=== PATIENT | female | born 2000 | race Caucasian/White ===

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

== ENCOUNTER → 2024-05-23 | Outpatient (CLI) | payer MEDICAID, SELFPAY ==
--- NOTE | 2024-05-23 11:49 | RAD_ITS ---
STUDY: X-RAY - PELVIS AND RIGHT HIP REASON FOR EXAM: Female, 24 years old. Right hip pain. TECHNIQUE: 3 views of the pelvis and hip. COMPARISON: None. FINDINGS: There is a non-specific bowel gas pattern. Normal visualized soft tissue structures. Normal bilateral iliac wings, sacroiliac joints and visualized sacrum. Normal bilateral superior and inferior pubic rami. Normal pubic symphysis. Normal bilateral ischial tuberosities. Normal visualized femoral head. Normal acetabulum. Normal hip joint. RAD/HIP, UNI W/ Pelvis 2-3 Views IMPRESSION: Normal x-ray examination of the pelvis and hip. Electronically Signed: Dex Sawant MD at 13:48 EDT ,
== END | disposition home or self-care (01) ==
LOC: RAD 11:48
PROVIDERS: PCP Nurse Practitioner Adult Health; Referring Provider Student in an Organized Health Care Education/Training Program; Visit Provider Student in an Organized Health Care Education/Training Program
DX: M25.551 Pain in right hip (principal)
CPT/HCPCS: 73502

== ENCOUNTER 2024-05-30 17:28 | Emergency (ER) | payer MEDICAID, SELFPAY ==
[2024-05-30 17:29] VITALS: BP 145/96; PULSE 88; RESP 16; TEMP 36.6; O2SAT 100; BMI 38.7
[2024-05-30] MEDS: Ketorolac 15 MG/ML Vial IM (18:17)
--- NOTE | 2024-05-30 18:19 | RAD_ITS ---
INDICATION: Shortness of breath EXAMINATION/TECHNIQUE: X-RAY - XR Chest 2 Views COMPARISON: None. FINDINGS: The lungs are clear. The cardiomediastinal silhouette is unremarkable. No pleural effusion or pneumothorax. No acute osseous abnormalities. RAD/Chest PA and Lateral IMPRESSION: No acute radiographic abnormalities. Electronically Signed: Yogi Huerta MD at 18:41 EDT ,
--- NOTE | 2024-05-30 19:40 | EDS_ITS ---
HPI History of Present Illness Chief Complaint: Back Detail of Chief Complaint: Back pain thoracic lumbar and shortness of breath Informant: patient and family Onset/Context/Timing Onset: Days Timing: Continuous and Waxes and wanes Quality: Sharp pain Location: Dorsal and paralumbar region Current Severity: Mild Maximum Severity: Moderate Worsened by: Movement Relieved by: Nothing Associated Symptoms Associated Symptoms: Shortness of breath, HPI narrative to clarify Narrative Narrative: Patient is a 24-year-old female. She has history of autism. She has history of asthma. She denies fever, chills night sweats. She does report mild congestion. Otherwise HEENT review of system is negative. Neck is supple. Lungs are without wheeze rales rhonchi with good millimeter bilaterally. Heart is regular. Rate is normal. There is no murmur, gallop or rub. There is no reproducible chest pain. There is no midline back pain. She does have a pair of dorsal paralumbar discomfort. Movement causes her discomfort. Patient denies GI symptoms. Patient denies bowel or bladder dysfunction. Patient denies saddle paresthesia or anesthesia. Patient denies foot drop. Patient denies buckling of her knees going up and down steps. She complains of pain that is in the right buttocks comes anteriorly and goes down the leg straight and not in a radicular/dermatomal distribution. Prior similar symptoms: No Recent Illness/Hospitalization: No PFSH PFSH Medical History no medical history Home Medications ?Medication ?Instructions ?Recorded ?Last Taken ?Type lamotrigine 200 mg tablet 100 mg PO DAILY 05/30/24 05/30/24 History loratadine 10 mg tablet (Claritin) 10 mg PO DAILY 05/30/24 05/30/24 History naproxen 500 mg tablet 500 mg PO BID #20 tabs 05/30/24 Unknown Rx Allergy/AdvReac Type Severity Reaction Status Date / Time No Known Allergies Allergy Verified 05/30/24 17:29 Surgical History no surgical history no surgical history Social History (Updated 05/30/24 @ 19:[address] Kaushik Funk MD) household members: family Smoking Status: Never smoker ROS ROS ED Constitutional Constitutional ED: Denies chills, fever(s) or subjective ENT ENT ED: Denies ear pain, rhinorrhea or sore throat Cardiovascular Cardiovascular: Denies chest pain, orthopnea, palpitations or paroxysmal nocturnal dyspnea Respiratory/Chest Respiratory/Chest: Reports dyspnea; Denies cough, dyspnea on exertion, orthopnea or paroxysmal nocturnal dyspnea Gastrointestinal Gastrointestinal: Denies abdominal pain, nausea or vomiting Genitourinary Genitourinary ED: Denies dysuria, hematuria or urinary frequency Musculoskeletal Musculoskeletal: Reports back pain; Denies arthralgias, myalgias or neck pain Integumentary Denies rash Neurologic Neurologic: Denies headache(s) or paresthesias Endocrine Endocrinology: Denies cold intolerance or heat intolerance Hematologic/Lymphatic Hematologic/Lymphatic: Denies easy bleeding or easy bruising EXAM Physical Exam Const Vital Signs: 05/30/24 17:29 Temperature 98 F Temperature Source Temporal Pulse Rate 88 Respiratory Rate 16 Blood Pressure 145/96 H Blood Pressure Mean 112 Pulse Ox 100 Oxygen Delivery Method Room Air Positive well nourished and well developed General Appearance ED: well developed and NAD; Negative for pallor HEENT Reports moist mucous membranes HEENT Narrative: Head is atraumatic no cephalic. Ears normal. Nares patent. Posterior pharynx is normal. Eyes PERRL and EOMs intact bilaterally General Eye ED: Negative for pale conjunctiva or scleral icterus Neck no lymphadenopathy, supple and no JVD Chest Wall palpation of chest normal Resp normal respiratory effort and clear to auscultation bilaterally Cardio regular rate, regular rhythm, S1 normal heart sound, S2 normal heart sound and no murmurs GI normal to inspection, nondistended, normoactive bowel sounds, non-tender, non- distended and no masses; Negative for hepatosplenomegaly Back/Spine no CVA tenderness Back/Spine Narrative: Paralumbar discomfort as well as. Dorsal discomfort Thoracic Spine / Upper Back: Negative for thoracic spinal tenderness Lumbar Spine / Lower Back: Negative for lumbar spinal tenderness Neuro oriented x3, CN's II-XII intact bilaterally and no sensory deficits noted Neuro Narrative: There is no clonus at the ankles. Babinski sign negative bilaterally. EHL intact. 5 or 5 strength plantar and dorsiflexion. Negative straight leg test right and left. Normal sensation L3-S1 dermatome. Patella and ankle reflex are 2+ and symmetric. Sensorium / Orientation: alert Motor Exam: strength 5/5 throughout Psych mental status grossly normal Skin no rashes or lesions noted, no wounds and skin turgor normal General Skin Exam: elasticity normal; Negative for jaundice or pallor MDM MDM MDM Narrative Medical decision making narrative: Because a history of asthma shortness of breath chest x-ray was obtained to make sure there is no evidence of pneumothorax. Back pain is muscular etiology. There is no concern for epidural abscess, epidural hematoma or spinal lesion. Patient treated with Toradol. She refused IV. Radiography Chest X-Ray - ED: 2 View and Read by ED Physician (Cardiac silhouette size normal. Lung parenchyma normal. [place] normal. [place] structures are unremarkable. In my opinion the chest x-ray is normal.) Diagnostic Testing: Clinical Impression(s) from Imaging Studies Chest X-Ray 05/30/24 18:19 IMPRESSION: No acute radiographic abnormalities. Electronically Signed: Yogi Huerta MD at 18:41 EDT , Treatment and Re-Evaluation :: Patient was reassessed. She does report some improvement with Toradol. Mother states that Tylenol and ibuprofen does not work. She is not using first of all proper dose or does not take more than 1 dose which is insufficient. Will prescribe Naprosyn. She was given a work restriction. Discharge Plan Triage Chief Complaint: Back ED Provider: Kaushik Funk Dx/Rx/DC Orders Clinical Impression: Strain of lumbar paraspinous muscle, Acute bilateral thoracic back pain, Elevated blood-pressure reading, without diagnosis of hypertension Instructions: ED Back Pain (Acute or Chronic), ED Hypertension, To Be Confirmed Prescriptions: New naproxen 500 mg tablet 500 mg PO BID Qty: 20 0RF No Action lamotrigine 200 mg tablet 100 mg PO DAILY loratadine [Claritin] 10 mg tablet 10 mg PO DAILY Stand Alone Forms: Work Status Form Primary Care Provider: JONATAN PETERS Referrals: JONATAN PETERS CRNP [Primary Care Provider] - Print Language: Moldovan Disposition Disposition: Home, Self Care
[2024-05-30 20:01] VITALS: BP 151/81; PULSE 72; RESP 18; TEMP 35.8; O2SAT 99
== END 2024-05-30 20:02 | disposition home or self-care (01) ==
PROVIDERS: Emergency Provider Emergency Medicine; PCP Nurse Practitioner Adult Health; Visit Provider Emergency Medicine
DX: S39.012A Strain of muscle, fascia and tendon of lower back, initial encounter (principal); X58.XXXA Exposure to other specified factors, initial encounter; M54.6 Pain in thoracic spine; R03.0 Elevated blood-pressure reading, without diagnosis of hypertension
CPT/HCPCS: 71046; 96372; 99282; A4216

== ENCOUNTER → 2024-07-14 | Outpatient (CLI) | payer MEDICAID, SELFPAY ==
[2024-07-14 09:10] LABS: Absolute Lymphocyte Count 1.28 X10^3/uL (0.83-4.51); Absolute Neutrophil Count 2.4 X10^3/uL (2.0-7.7); Basophil# 0.05 X10^3/uL; Basophil% 1.1 % (0-1); Eosinophil# 0.43 X10^3/uL; Eosinophils% 9.5 % (0-5); Hematocrit 36.7 % (37-47); Lymphocyte # 1.28 X10^3/ul (0.83-4.51); Lymphocyte % 28.1 % (19-41); Mean Corp Hgb Conc 32.7 g/dL (32-36); Mean Corpuscular Hgb 28.6 pg (27.0-32.0); Mean Corpuscular Volume 87.4 fL (81-99); Mean Platelet Vol. 9.4 fl (6.2-12.0); Monocyte# 0.41 X10^3/uL; NRBC Flagged by Analyzer 0 % (0-5); Neutrophil # 2.37 X10^3/uL (2.7-7.7); Neutrophil % 52.1 % (47-70); Platelet Count 325 K/mm3 (150-450); RBC Distribution Width CV 12.7 % (11.6-14.6); RBC Distribution Width SD 40.2 fl (35.1-43.9); RET-HE 32.7 pg (30-35); Reticulocyte Count 0.98 % (0.5-1.5); White Blood Count 4.6 K/mm3 (4.4-11.0)
[2024-07-14 09:13] LABS: Erythrocyte Sedimentation Rate 5 mm/hr (0-30)
[2024-07-14 09:52] LABS: ALB/GLOB Ratio 1.1 RATIO (0.9-2.4); AST(SGOT) 11 U/L (15-37); Alanine Aminotransfer ALT/SGPT 13 U/L (13-56); Albumin, Serum 3.6 g/dL (3.2-5.0); Alkaline Phosphatase 49 U/L (45-117); Anion Gap 6 (5-15); BUN 17 mg/dL (7-18); BUN/Creat Ratio 20.9 RATIO (10-20); CRP < 2.90 mg/L (0.0-3.0); Calcium,Total 8.9 mg/dL (8.5-10.1); Chloride 111 mmol/L (98-107); Creatinine, Serum 0.81 mg/dL (0.55-1.02); EST Glomerular Filtration Rate 93 mL/min (>60); Est Glom Filt Rate - Afr Amer 112 mL/min (>60); Ferritin 21 ng/mL (8-252); Globulin 3.3 g/dL (2.2-4.2); Glucose 91 mg/dL (74-106); Iron 66 ug/dL (50-170); Iron Binding Capacity,Total 357 ug/dL (250-450); LDH 127 U/L (84-246); Potassium 3.9 mmol/L (3.5-5.1); Protein, Total 6.9 g/dL (6.4-8.2); Sodium Level 141 mmol/L (136-145)
[2024-07-14 10:36] LABS: HIV - WCH Non-Reactive (Nonreactive)
[2024-07-15 13:08] LABS: Anti-Centromere B Ab >8.0 AI (0.0-0.9); Anti-Chromatin <0.2 AI (0.0-0.9); Anti-Jo <0.2 AI (0.0-0.9); Anti-Scleroderma-70 AB <0.2 AI (0.0-0.9); Anti-dsDNA Ab <1 IU/mL (0-9); RNP Ab <0.2 AI (0.0-0.9); SJOGREN'S Anti-SS-A test < 0.2 AI (0.0-0.9); SJOGREN'S Anti-SS-B test < 0.2 AI (0.0-0.9); Smith Ab <0.2 AI (0.0-0.9)
[2024-07-16 16:10] LABS: ACCA 10 units (0-90); ALCA 3 units (0-60); AMCA 5 units (0-100); Albumin 3.8 g/dL (2.9-4.4); Alpha-1-Globulins 0.2 g/dL (0.0-0.4); Alpha-2-Globulins 0.7 g/dL (0.4-1.0); Cytoplasmic Ab (C-ANCA) <1:20 titer (Neg:<1:20); EBV Acute VCA IgM < 36.0 U/mL (0.0-35.9); EBV-VCA IgG > 600.0 U/mL (0.0-17.9); Endomysial Antibody IgA Negative (Negative); Gamma Globulin 0.8 g/dL (0.4-1.8); HEPATITIS B SURFACE AG Negative (Negative); Hep C Antibodies Non Reactive (Non Reactive); Hepatitis A IgM Antibody Negative (Negative); Hepatitis B Core AB IgM Negative (Negative); Immunoglobulin A 159 mg/dL (87-352); Immunoglobulin E 21 IU/mL (6-495); Immunoglobulin G 849 mg/dL (586-1602); Immunoglobulin M 72 mg/dL (26-217); PROEL- TOTAL PROTEIN 6.5 g/dL (6.0-8.5); Perinuclear Ab (P-ANCA) <1:20 titer (Neg:<1:20); gASCA 14 units (0-50); t-Transglutaminase IgA <2 U/mL (0-3)
== END | disposition home or self-care (01) ==
PROVIDERS: PCP Nurse Practitioner Adult Health; Referring Provider Internal Medicine Gastroenterology; Visit Provider Internal Medicine Gastroenterology
DX: K92.2 Gastrointestinal hemorrhage, unspecified (principal)
CPT/HCPCS: 36415; 80053; 80074; 82728; 82784; 82785; 83516; 83540; 83550; 83615; 84165; 84443; 85025; 85045; 85652; 86036; 86037; 86140; 86225; 86235; 86255; 86334; 86664; 86665; 86671; 86703

== ENCOUNTER → 2024-08-01 | Outpatient (CLI) | payer MEDICAID, SELFPAY ==
--- NOTE | 2024-08-01 16:44 | CT_ITS ---
STUDY: CT ABDOMEN AND PELVIS WITH CONTRAST REASON FOR EXAM: Female, 24 years old. Rectal bleeding RADIATION DOSAGE (If Supplied By Facility): CTDIvol = ( 16.04 ) mGy, DLP = ( 1270.30 ) mGycm TECHNIQUE: Transaxial images were obtained from the dome of the diaphragm to the symphysis pubis with oral contrast. IV 100mL Isovue-300 was administered. Sagittal and coronal images were reconstructed. Individualized dose optimization techniques were used for this CT. COMPARISON: September 21, 2016 FINDINGS: The visualized lung bases are unremarkable. The visualized portions of the heart are within normal limits. Normal liver. Normal gallbladder and extrahepatic biliary system. Normal spleen. Normal pancreas. Normal bilateral adrenal glands. Normal right kidney. Normal left kidney. Normal visualized stomach. Normal small intestine. There are a few sigmoid colonic diverticula consistent with diverticulosis. The appendix is visualized and appears normal. Normal abdominal aorta. Normal inferior vena cava. Normal retroperitoneum. Normal urinary bladder. Normal visualized uterus. No adnexal follicles. There is no free fluid in the abdomen or pelvis. Normal abdominal wall. There is mild lumbar dextroscoliosis. CT/Abdomen/Pelvis WITH Contrast IMPRESSION: Sigmoid diverticulosis. No obstruction or abscess. Electronically Signed: Hood Triplett MD at 9:49 EDT ,
--- OUTSIDE RECORDS SUMMARY | 2024-08-01 17:41 | XMS RPT_ITS | CCD ---
Author Organization [facility] ion Partnership [facility] Care Team Providers Care Gps Field Data Collector Name Role Phone LUCY KU (RES) Unavailable Unavailable SANTI JAVIER Unavailable Unavailable REFERRED, SELF Unavailable Unavailable JOECHARANJIT PEREZ Unavailable Unavailable REFERRED, SELF Unavailable Unavailable JOE, CHARANJIT Alexander Unavailable Unavailable LEONARDO DRAPER Unavailable Unavailable REFERRED, SELF Unavailable Unavailable JOECHARANJIT PEREZ Unavailable Unavailable REFERRED, SELF Unavailable Unavailable JOECHARANJIT PEREZ P Unavailable Unavailable LEONARDO DRAPER Unavailable Unavailable Charanjit Diaz MD Primary Care Provider VERONIKA ECRNA DR Admitting Unavailable VERONIKA CERNA DR Attending Unavailable VERONIKA CERNA DR Primary Care Unavailable RASHMI LOPEZ DO Consulting Unavailable PROVIDER, UNKNOWN Consulting Unavailable VERONIKA CERNA DR Admitting Unavailable VERONIKA CERNA DR Attending Unavailable VERONIKA CERNA DR Primary Care Unavailable RASHMI LOPEZ DO Consulting Unavailable PROVIDER, UNKNOWN Consulting Unavailable DR RASHMI LOPEZ DO Primary Care Physician [phone] MAST ENVIRONMENTAL EPIDEMIOLOGIST-SENIOR GIS ANALYST, JONATAN Primary Care Unavailabl e MAST ENVIRONMENTAL EPIDEMIOLOGIST-SENIOR GIS ANALYST, JONATAN Attending Unavailabl e BORRUSO DANIEL WESTBROOK Attending Unavailable MAST ENVIRONMENTAL EPIDEMIOLOGIST-SENIOR GIS ANALYST, JONATAN Primary Care Unavailabl e MAST ENVIRONMENTAL EPIDEMIOLOGIST-SENIOR GIS ANALYST, JONATAN Primary Care Unavailabl e BORRUSO DANIEL WESTBROOK Attending Unavailable Allergies Allergy Classification Reported Allergen(s) Allergy Type Date of Onset Reaction(s) Facility (2 sources) Cat; Translations: [CATS] Propensity to adverse reactions (disorder) 10-15-19 11 Intolerance [facility] Repository (2 sources) Seasonal allergy; Translations: [SEASONAL ALLERGIES] Propensity to adverse reactions (disorder) 02-18-20 13 Shortness of Breath [facility] Repository (1 source) Cat; Translations: [CAT ALLERGY] Propensity to adverse reactions (disorder) 09-05-20 [facility] Repository (1 source) Serotonin Reuptake Inhibitors (Ssris) Drug allergy (disorder) [facility] Repository (2 sources) Serotonin Drug Allergy Antimicrobial susceptibility test (procedure) [facility] Comment on above: sensitivity to serot onin drugs (2 sources) Cats 1 Allergy to substance hives, hi [facility] Comment on above: hives, itchy eyes, i tchy throat (2 sources) Hayfever 2 Allergy to substance Weal (disorder) [facility] Comment on above: nasal drainage, itch y eyes, Medications Current Medications Medication Drug Class(es) Dates Sig (Normalized) Sig (Original) Ascorbic Acid (2 sources) Vitamin C Start: 12-14-2022 Vitamin C qDay, 0 Refill(s) Start Date: 12/14/22 Status: Ordered Biotin (2 sources) Start: 12-14-2022 biotin Oral, qDay, 0 Refill(s) Start Date: 12/14/22 Status: Ordered 12 hr buPROPion hydrochloride 150 mg extended release oral tablet (2 sources) Aminoketone Start: 12-14-2022 take 1 tablet by mouth every hour, then take 1 tablet by mouth once daily Wellbutrin SR 150 mg/12 hours oral tablet, extended release Dose : 150 mg = 1 tab(s), Oral, qDay, # 60 tab(s), 0 Refill(s) Start Date: 12/14/22 Status: Ordered fluticasone propionate 0.05 mg/actuat metered dose nasal spray (2 sources) Corticosteroid Start: 03-08-2023 End: 09-04-2023 take 1 dose nasal route twice daily as needed for congestion fluticasone 50 mcg/inh NASAL spray Dose = 1 spray(s), Nostril, each, BID, PRN Nasal congestion, in each nostril, # 1 EA, 5 Refill(s), Pharmacy: [facility] #[id number], 163.5, cm, 03/08/23 11:35:00 EDT, Height Start Date: 03/08/23 Stop Date: 09/04/23 Status: Ordered hydrOXYzine hydrochloride 25 mg oral tablet (2 sources) Antihistamine Start: 12-14-2022 hydrOXYzine hydrochloride 25 mg oral tablet Dose : 25 mg = 1 tab(s), Oral, Daily, # 0 tab(s), 0 Refill(s) Start Date: 12/14/22 Status: Ordered lamoTRIgine 200 mg oral tablet (3 sources) Mood Stabilizer, Anti-epileptic Agent Start: 12-14-2022 lamoTRIgine 200 mg oral tablet Dose : 200 mg = 1 tab(s), Oral, qDay, # 180 tab(s), 0 Refill(s) Start Date: 12/14/22 Status: Ordered Start: 05-23-2021 take 2 tablets by mo ut twice daily lamoTRIgine (LAMICTAL) 25 mg tablet Take 50 mg by mouth twice daily. 0 05/23/2021 Active Comment on above: Take 50 mg by mouth twice daily. Multiple Vitamins oral capsule (2 sources) Start: 12-14-2022 take 1 capsule by mouth once daily Multiple Vitamins oral capsule Dose = 1 cap(s), Oral, Daily, 0 Refill(s) Start Date: 12/14/22 Status: Ordered Completed/Discontinued Medications Medication Drug Class(es) Dates Sig (Normalized) Sig (Original) Albuterol (2 sources) beta2-Adrenergic Agonist Start: 12-14-2022 End: 06-12-2023 take 2 puff(s) by inhalation every four hours as needed for wheezing Ventolin HFA MDI (90 mcg/inh) inhalation aerosol 2 puff(s), Inhalation, q4h, PRN Shortness of breath or wheezing, use with spacer chamber. PHARMACY PLEASE DISPENSE SPACER. Okay to substitute alternative brand if needed for insurance., # 1 EA, 5 Refill(s), Pharmacy: [id number], 163.5, cm, 12/14/22 15:04:00 EST, Height Start Date: 12/14/22 Stop Date: 06/12/23 Status: Ordered 24 hr amphetamine aspartate 3.75 mg / amphetamine sulfate 3.75 mg / dextroamphetamine saccharate 3.75 mg / dextroamphetamine sulfate 3.75 mg extended release oral capsule (1 source) Central Nervous System Stimulant Start: 06-02-2021 amphetamine-dext roamphetamine XR (ADDERALL XR) 15 mg 24 hr capsule TAKE 1 CAPSULE DAILY IN THE MORNING upon awakining 0 06/02/2021 Active Comment on above: TAKE 1 CAPSULE DAILY IN THE MORNING upon awakining diclofenac sodium 75 mg delayed release oral tablet (1 source) Nonsteroidal Anti-inflammatory Drug Start: 07-16-2023 End: 07-30-2023 diclofenac sodium 75 mg oral delayed release tablet Dose : 75 mg = 1 tab(s), Oral, BID, # 28 tab(s), 0 Refill(s), Pharmacy: [facility] #[id number], Right hip pain, 167, cm, 07/16/23 11:31:00 EDT, Height, kg, 07/16/23 11:31:00 EDT, Dosing Weight Start Date: 07/16/23 Stop Date: 07/30/23 Status: Ordered loratadine 10 mg oral capsule (2 sources) Start: 03-08-2023 End: 06-06-2023 loratadine 10 mg oral capsule Dose : 10 mg = 1 cap(s), Oral, qDayAC, PRN Allergy symptoms, # 90 cap(s), 0 Refill(s), Pharmacy: [facility] #[id number], 163.5, cm, 03/08/23 11:35:00 EDT, Height Start Date: 03/08/23 Stop Date: 06/06/23 Status: Ordered mirtazapine 15 mg oral tablet (1 source) Start: 06-11-2020 take 1 tablet by mouth once daily at bedtime mirtazapine (REMERON) 15 mg tablet Take 1 tablet by mouth daily at bedtime. 30 tablet 2 06/11/2020 Active Comment on above: Take 1 tablet by josué daily at bedtime. prazosin 1 mg oral capsule (1 source) alpha-Adrenergic Joan Start: 05-07-2020 take 1 capsule by mouth once daily at bedtime prazosin (MINIPRESS) 1 mg cap Take 1 capsule by mouth daily at bedtime. 30 capsule 5 05/07/2020 Active Comment on above: Take 1 capsule by mo [facility] daily at bedtime. propranolol hydrochloride 20 mg oral tablet (1 source) beta-Adrenergic Joan Start: 06-21-2020 take 1 tablet by mouth every twelve hours as needed propranolol (INDERAL) 20 mg tablet Take 1 tablet by mouth twice daily as needed (anxiety or panic attacks). 60 tablet 2 06/21/2020 Active Comment on above: Take 1 tablet by josué th twice daily as needed (anxiety or panic attacks). selenium sulfide 22.5 mg/ml medicated shampoo (3 sources) Start: 04-20-2023 End: 05-18-2023 selenium sulfide 2.25% topical shampoo Dose = 1 rosetta, Topical, Mon/Sun/Fri, # 180 mL, 1 Refill(s), Pharmacy: [facility] #[id number], 185, cm, 04/20/23 13:37:00 EDT, Height, kg, 04/20/23 13:37:00 EDT, Dosing Weight Start Date: 04/20/23 Stop Date: 05/18/23 Status: Ordered Problems Active Problems Problem Classification Problem Date Documented Da te Episodic/Chronic Anxiety disorders (3 sources) Anxiety disorder, unspecified; Translations: [Generalized anxiety disorder] Onset: 07-14-2017 08-28-2019 Chronic Asthma (2 sources) Asthma 12-14-2022 Chronic Attention-deficit, conduct, and disruptive behavior disorders (1 source) Attention deficit hyperactivity disorder, predominantly inattentive type; Translations: [Attention-deficit hyperactivity disorder, predominantly inattentive type] Onset: 01-20-2019 03-11-2020 Chronic Cardiac dysrhythmias (2 sources) Palpitations 12-18-2022 Episodic Deficiency and other anemia (2 sources) Anemia 12-14-2022 Episodic E Codes: Fall (1 source) Fall (on) (from) unspecified stairs and steps, subsequent encounter; Translations: [Fall on or from stairs or steps (finding)] Episodic Endometriosis (2 sources) Endometriosis (clinical) 12-14-2022 Chronic Fracture of lower limb (3 sources) Closed trimalleolar fracture; Translations: [Displaced trimalleolar fracture of left lower leg, subsequent encounter for closed fracture with routine healing] Episodic Gastrointestinal hemorrhage (2 sources) Rectal hemorrhage 12-14-2022 Episodic Joint disorders and dislocations; trauma-related (1 source) Dislocation of tarsal joint of left foot, subsequent encounter; Translations: [Dislocation of tarsal joint of left foot, subsequent encounter] Episodic Menstrual disorders (5 sources) Dysmenorrhea; Translations: [Dysmenorrhea, unspecified] Onset: 07-14-2017 07-14-2017 Chronic Miscellaneous mental health disorders (2 sources) Binge eating disorder; Translations: [Binge eating disorder] Onset: 07-14-2017 07-14-2017 Chronic Mood disorders (5 sources) Bipolar II disorder; Translations: [Bipolar II disorder] Onset: 10-31-2016 03-11-2020 Chronic Nutritional deficiencies (1 source) Vitamin D deficiency; Translations: [Vitamin D deficiency, unspecified] Onset: 04-25-2018 02-06-2019 Chronic Other connective tissue disease (3 sources) Other specified soft tissue disorders; Translations: [Other specified soft tissue disorders] Onset: 01-04-2023 Episodic Other ear and sense organ disorders (2 sources) Bilateral tinnitus 12-14-2022 Episodic Other female genital disorders (1 source) Other specified conditions associated with female genital organs and menstrual cycle; Translations: [Other specified conditions associated with female genital organs and menstrual cycle] Onset: 03-22-2018 Episodic Other inflammatory condition of skin (2 sources) Seborrheic dermatitis of scalp 04-20-2023 Episodic Other lower respiratory disease (2 sources) Dyspnea 12-18-2022 Episodic Other non-traumatic joint disorders (1 source) Ankle joint pain; Translations: [Pain in right ankle and joints of right foot] Episodic Other non-traumatic joint disorders (2 sources) Hip pain 07-16-2023 Episodic Other upper respiratory disease (2 sources) Allergic rhinitis 03-08-2023 Chronic Other upper respiratory infections (1 source) Sore throat symptom 05-28-2023 Episodic Otitis media and related conditions (1 source) Dysfunction of eustachian tube 05-28-2023 Episodic Residual codes; unclassified (1 source) Past history of procedure; Translations: [Other specified postprocedural states] Episodic Residual codes; unclassified (2 sources) Peripheral edema 03-08-2023 Episodic Sprains and strains (1 source) Sprain of tibiofibular ligament of left ankle; Translations: [Sprain of tibiofibular ligament of left ankle, subsequent encounter] Episodic Unclassified (1 source) Encounter for initial prescription of implantable subdermal contraceptive; Translations: [Encounter for initial prescription of implantable subdermal contraceptive] Onset: 03-22-2018 Unclassified (2 sources) Gender finding 12-18-2022 Unclassified (2 sources) History of SARS-CoV-2 12-14-2022 Past or Other Problems Problem Classification Problem Date Documented Da te Episodic/Chronic Other nutritional; endocrine; and metabolic disorders (1 source) Childhood obesity; Translations: [Body mass index (BMI) pediatric, greater than or equal to 95th percentile for age] Onset: 10-16-2017 05-22-2019 Episodic Ovarian cyst (1 source) Cyst of right ovary; Translations: [Unspecified ovarian cyst, right side] Onset: 01-08-2017 01-08-2017 Episodic Residual codes; unclassified (1 source) Hallucinations; Translations: [Hallucinations, unspecified] Onset: 12-10-2017 12-10-2017 Episodic Residual codes; unclassified (1 source) Insomnia; Translations: [Insomnia, unspecified] Onset: 09-25-2018 06-04-2019 Episodic Results Test Name Value Interpretation Reference Range Facility XR HIP 3-4 VIEWS BILATERALon 08-12-2023 XR HIP 3-4 VIEWS BILATERAL ORIGINAL EXAMINATION: 5 XRAY VIEWS OF THE pelvis and BILATERAL HIPS08/10/2023 4:30 pm HIPS BILATERAL XR COMPARISON: None HISTORY: ORDERING SYSTEM PROVIDED HISTORY: Reason for Exam: BILATERAL HIP PAIN, FINDINGS: No acute fracture, dislocation, bony lytic process or periosteal reaction is seen in the visualized bones and joints. No significant degenerative or erosive type of arthritis or soft tissue calcification. Compared to the left hip there is evidence of right hip dysplasia with decreased coverage of the femoral head. The center edge angle on the right side is abnormal at 18 degrees and is normal on the left side at 28 degree. No significant degenerative changes or joint space narrowing in either hip. Symmetric normal SI joints. IMPRESSION: No acute skeletal abnormality in the pelvis and hips. 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 No similar finding on the left side.. Interpreted by: Rolando Hernandez MD Preliminary Report By: Rolando Hernandez MD Electronically signed By Rolando Hernandez MD Dictated Date: 08/11/2023 2:51:41 PM Prelim Date: 08/12/2023 9:51:55 PM Sign Date: 08/12/2023 9:51:55 PM Ordering Provider: JONATAN Thornton [facility] ([place]) OPERATIVE PROCEDURESon 01-15 OPERATIVE PROCEDURES [facility] OPERATIVE REPORT NAME ACCOUNT SEX AGE ADMIT DISCHARGE PT MED. RECORD# NUMBER DATE DATE TYPE ALECIA MALCOLM [id number] F 22 01/05/23 2 [id number] ROOM: [facility] DATE OF : 2000 DICTATING PHYSICIAN: Veronika Cerna DATE OF SURGERY: 01/05/23 SURGEON: Veronika Cerna MD BOOKMAKER'S CLERK: Thalia Leyva PA-C ANESTHESIOLOGIST: Bin Wray MD ANESTHETIC: General, postoperative saphenous and popliteal nerve block. PREOPERATIVE DIAGNOSIS: Left ankle trimalleolar fracture dislocation. POSTOPERATIVE DIAGNOSIS: Left ankle trimalleolar fracture dislocation. OPERATION PERFORMED: Left ankle open reduction and internal fixation trimalleolar fracture, open reduction and internal fixation of syndesmosis disruption. COMPLICATIONS: None. ESTIMATED BLOOD LOSS: 25 mL. MEDICATIONS: Ancef 2 gm IV. INDICATIONS FOR SURGERY: The patient is a 22-year-old female that had injured both ankles several days ago. They were treated at the emergency room. They were seen in the office by a physician speech language pathology assistant. I did see the patient in the office yesterday. Diagnosis was a displaced unstable trimalleolar fracture with syndesmosis disruption on the left, ankle sprain on the right. The patient wished to have surgery. Appropriate informed consent was obtained and signed. Findings showed a trimalleolar unstable ankle fracture on the left. We underwent a standard internal fixation of the fibula using a retrograde fibular nail, Arthrex. We did a medial malleolar screw on the fracture there. We used a TightRope device to stabilize the mortise. Posterior malleolar fragment was small and nondisplaced at the end of the procedure, not needing internal fixation. Standard wound closure with skin felipe, followed by being placed back in a fracture boot was done. assistant professor of physics, physician speech language pathology assistant was utilized throughout the entire procedure. Page 1 of 3 ALECIA MALCOLM Operative Report ALECIA MALCOLM : 2000 She helped with patient positioning, holding limb, holding of retractors. She helped with exposure throughout. She helped with internal fixation of the fibula, medial malleolus, syndesmosis, also with wound closure, bandage, and splint application. Without ophthalmic surgical assistant in their expertise, surgeon's time would have been increased, and surgical outcomes would have been less optimal. DESCRIPTION OF OPERATION: The patient was taken to the OR, transferred to the OR table. Appropriate time-outs performed, general anesthetic administered. Ancef 2 gm IV was given preoperatively. Narrow tourniquet was utilized. Right lower extremity had PETER hose and SCD on throughout. Left lower extremity was examined with fluoroscopic images to confirm position of the limb and x-ray findings. Once this was done, the left lower extremity was prepped, padded, and draped in usual orthopedic sterile fashion for the procedure. We began by mapping out the anatomy with help of fluoroscopy and our proposed incision distal to the tip of the lateral malleolus through skin and subcutaneous tissue. Blunt dissection took us down to the tip of the medial malleolus. Position of our guidepin was verified under AP and lateral fluoroscopic images. We were able to get the guidepin in the distal fibula going proximally to the fracture site. We were not able to adequately reduce the fracture to allow wire placement. We made an incision over the fracture site. Careful blunt dissection brought us down to the fracture site. We placed a bone reduction clamp around the fracture without any undue soft tissue stripping. Once this was in position, the guidepin could now be easily placed across the fracture into the proximal fibula. We then did the appropriate reaming distally, followed by appropriate proximal reaming with the long 3 mm Arthrex nail. Once this was done, the nail was placed with the outrigger device on, seated up adequately within the bone, verified clinically as well as radiographically. We then placed two distal cross-blocking screws through the nail, each being 3-0 cancellous bone screws with appropriate length and good bite. We then felt the mortise was unstable based on radiographic findings preoperatively as well as intraoperatively. We drilled two holes for syndesmosis fixation with TightRopes. We then removed the external alignment system from the fibular nail. We had previously deployed the proximal talons per technique. That was verified radiographically. We then placed a cap screw in the distal birgit. Next, the medial malleolar fracture which remained significantly displaced and rotated was addressed. An incision was made over the medial malleolus, ultimately was reduced, held in place after we thoroughly irrigated. It was held in place with a clamp. Original fixation was not successful with one screw. Inadequate purchase was noted. We then had considered using a (more content not included)... Normal [facility] C-ARM USAGE 1 HOUR 023 C-ARM USAGE 1 HOUR [place] [address] Patient: ALECIA MALCOLM Phone#: : 2000 Age: 22 Gender: F Pt. Type: Out Account: [id number] Location: 062 Ordering: VERONIKA CERNA Exam Date: 01/05/2023/13:43 Family Phys: RASHMI LOPEZ Charge Code: 718458 Physician: Lincoln Order #: [id number] Dose#: PROCEDURE: C-ARM USEAGE 1 HR COMPARISON: None. INDICATIONS: Ankle surgery. TOTAL DOSE: 12.18 mGy Time: 3 minutes 41.8 seconds FINDINGS: IMAGES: 12 intraoperative spot images of the left ankle. BONES: Intraoperative spot images of the left ankle demonstrate a distal fibula fracture and a medial malleolus fracture. Femoral medullary birgit is present with 2 distal screws. A screw fixates the medial malleolus fracture. There is osteotomy of the distal fibula and tibia for syndesmotic repair. OTHER: Negative. CONCLUSION: 1. Intraoperative spot images for open reduction internal fixation left ankle Dictated by: Bisi Treadwell MD on 01/05/2023 at 16:18 Approved by: Bisi Treadwell MD on 01/05/2023 at 16:[address] [facility] SERUM QUALon 01-05 EXTERNAL QC DONE? YES Normal [facility] Comment on above: Performed By: #### [id number] #### [facility],[address] [place] [address] INTERNAL QC PASS Normal [facility] Comment on above: Performed By: #### [id number] #### [facility],[address] [place] [address] SER Negative Normal NEGATIVE [facility] Comment on above: Performed By: #### [id number] #### [facility],[address] [place] [address] CV VENOUS LEG LTon 3 CV VENOUS LEG LT [place] [address] Patient: ALECIA MALCOLM Phone#: : 2000 Age: 22 Gender: F Pt. Type: Out Account: [id number] Location: Ordering: [facility] Exam Date: 01/04/2023/11:01 Family Phys: RASHMI LOPEZ Charge Code: 922306 Physician: Lincoln Order #: [id number] Dose#: PROCEDURE: VENOUS DOPPLER LT LEG COMPARISON: None. INDICATIONS: PAIN, SWELLING TECHNIQUE: Color duplex Doppler ultrasound evaluation analysis was performed in the usual manner. RADIOGRAPHER MAMMOGRAPHER: SHAUN RISK FACTORS FOR VENOUS DISEASE: LE trauma/injury Broken ankle Other Pain EXAMINATION: RIGHT +Present -Reduced o Absent LEFT SPONT PHASIC AUG REFLUX COMP SPONT PHASIC AUG REFLUX COMP + + + o + CFV + + + o + SFJ + FV (prox) + + + o + FV (mid) + FV (dist) + POP V + + + o + T/P TRUNK + + + o + PTV + + + o + PERONEAL V + + + o + GSV + GASTROC SOLEAL V RADIOGRAPHER MAMMOGRAPHER'S NOTES: FINDINGS: Continued Report - Page 2 of 2 Patient: ALECIA MALCOLM Phone#: : 2000 Age: 22 Gender: F Pt. Type: Out Account: [id number] Location: Ordering: [facility] Exam Date: 01/04/2023/11:01 Family Phys: RASHMI LOPEZ Charge Code: 915644 Physician: Lincoln Order #: [id number] Dose#: THROMBI: None visible. COMPRESSIBILITY: Normal. OTHER: Negative. CONCLUSION: 1. There is no evidence of superficial or deep vein thrombus. Dictated by: Jade Cesar MD on 01/04/2023 at 12:41 Approved by: Jade Cesar MD on 01/04/2023 at 12:54 Normal [facility] 12-15-[address] [facility] Telephone [facility]) ALECIA MALCOLM ([id number]) 2 F T Date Time Provider Department 12/15/22 CHARANJIT DIAZ During your visit today, we recorded the following information about you: Janeth Triplett EPIFANIO 12/15/2022 2:53 PM Signed Received release of Medical Records form from [facility] , signed by patient. Form was faxed to medical records at [phone] and then sent to scanning. Allergies As of Date: 12/15/2022 Noted Allergy Reaction CATS 10/15/2010 5 - Intolerance HAY FEVER (SEASONAL ALLERGIES) 02/17/2013 12 - Shortness of Breath Date Reviewed: 07/14/2021 Reviewed by: WERNER Whittington - Fully Assessed Reason for Visit: Release Of Medical Records [2017] Prescriptions as of 12/15/2022 - amphetamine-dextroamphetami ne XR (ADDERALL XR) 15 mg 24 hr capsule TAKE 1 CAPSULE DAILY IN THE MORNING upon awakining - lamoTRIgine (LAMICTAL) 25 mg tablet Take 50 mg by mouth twice daily. - propranolol (INDERAL) 20 mg tablet Take 1 tablet by mouth twice daily as needed (anxiety or panic attacks). - mirtazapine (REMERON) 15 mg tablet Take 1 tablet by mouth daily at bedtime. - prazosin (MINIPRESS) 1 mg cap Take 1 capsule by mouth daily at bedtime. 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] 09/25/2018 Attention deficit hyperactivity disorder (ADHD)*01/20/2019 Body mass index (BMI) greater than or equal to *10/16/2017 Encounter Status:Closed by JANETH TRIPLETT LPN on 12/15/22 [facility] OBSOLETEon 03-22-2018 OBSOLETE Procedure (OBGWST) -------LARON MALCOLM ([id number]) 01 F TDate Time Provider Department03/22/18 10:30 AM LUCY KU (MARK) OBGWST During your visit today, we recorded the following information about you: Pulse Blood pressure Weight Height 99/minute 124/79 116.1 kg 1.676 m Last Period 03/19/18Lucy Ku MD 03/22/2018 1:00 PM AddendumGynecology Clinic03/22/2018 11:11 [facility]: Nexplanon placement/menstrual suppressionHPI: Aleica Malcolm is a 17 year old FtM transgender male who presents toclinic today with his mother Stacey for consult regarding menstrualsuppression. He has been using control pills for a few years but forgetsto take pills sometimes and has occasional spotting which is very upsetting tohim. He ideally would have as little bleeding as possible.Alecia also struggles with anxiety and depression and is seeing a transgenderpsychiatrist for this. Is taking hydroxyzine and propranolol prn. Psychiatriststrongly recommended Nexplanon for menstrual suppression.Alecia is interested in hysterectomy as soon as possible and has many questionsabout this. He has not yet started taking testosterone but is consideringstarting in the near future.Review of Systems:GENERAL: Negative for malaise, significant weight loss and feverNECK: Negative for lumps, goiter, pain and significant neck swellingRESPIRATORY: Negative for cough, wheezing and shortness of breathCARDIOVASCULAR: Negative for chest pain, leg swelling and palpitationsGI: Negative for abdominal discomfort, blood in stools or black stools,changein bowel habitsGU: Negative for dysuria, frequency and incontinenceMUSCULOSKELETAL : Negative for joint pain or swelling, back pain, and musclepain.SKIN: Negative for lesions, rash, and itching.HEMATOLOGY/LYMPHOLO GY Negative for prolonged bleeding, bruising easily, andswollen nodes.ENDOCRINE: Negative for cold or heat intolerance, polyuria, polydipsia andgoiter.FAMILY HISTORYProblem Relation Age of Onset- pre-diabetes [OTHER] Mother- migraines [OTHER] Mother- Cancer Paternal Grandfather- benign tumor [OTHER] Paternal Grandmother- migraines [OTHER] Maternal GrandmotherPAST MEDICAL HISTORYDiagnosis Date- Abdominal pain- Anxiety- Mild binge-eating disorder 07/14/2017- NEGATIVE HISTORY OF 06-19-12 Normal Color Vision- Ovarian cyst- PMH - PAST MEDICAL HISTORY OF umbilical hernia- PMH - PAST MEDICAL HISTORY OF [facility] and renal ultrasound - normal- PMH - PAST MEDICAL HISTORY OF 08/21/2008 Failed Color VisionPAST SURGICAL HISTORYProcedure Laterality Date- NONESocial History Marital status: Single Spouse name: Years of education: Number of children:Occupational HistoryOccupation Employer CommentstudentSocial History Main Topics Smoking status: Never Smoker Smokeless tobacco: Never Used Comment: Mom no longer smokes Alcohol use: No Drug use: No Sexual activity: No Comment: Never SA, identifies as gayObstetric History T0 L0 SAB0 TAB0 Ectopic0 Multiple0 Live Mxujro2Ztesncohmqr:Current Outpatient Prescriptions:cholecalcifer ol, Vitamin D3, (VITAMIN D3) 50,000 unit cap capsule Take 1capsule by mouth once each week. Disp: 6 capsule Rfl: 0propranolol (INDERAL) 10 mg tablet Take 1 tablet by mouth twice daily. Can takean additional tablet once daily PRN anxiety/panic. Disp: 90 tablet Rfl: 2diphenhydrAMINE (BENADRYL) 25 mg capsule Take 1 capsule by mouth at bedtime asneeded. Use as directed. Disp: Rfl:acetaminophen (TYLENOL) 325 mg tablet Take 650 mg by mouth every 6 hours asneeded. Disp: Rfl:ALPRAZolam (XANAX) 0.5 mg tablet Take one tablet at bedtime the night prior tothe procedure and one tablet 30min prior to the procedure Disp: 2 tablet Rfl: 0ibuprofen (MOTRIN) 600 mg tablet Take 1 tablet by mouth every 6 hours as neededfor Pain. Take with food. Disp: 20 tablet Rfl: 0Norethindrone, Contraceptive, (ORTHO MICRONOR) 0.35 mg tablet Take 1 tablet bymouth once daily. Disp: 1 Package Rfl: 11No current facility-administered medications for this visit.Allergies:ALLERGIESAl lergen Reactions- Cats Intolerance- Hay Fever [Seasonal* Shortness of BreathPhysical Exam:PHYSICAL EXAMINATION:BP 124/79 Pulse 99 Ht 5' 6 (1.676 m) Wt 256 lb (116.1 kg) LMP03/19/2018 (Exact Date) BMI 41.32 kg/m?General: NAD, well nourished, appropriate affectAssessment and Plan: Alecia 17 year old FtM transgender young man whopresented to clinic for nexplanon placement for menstrual suppression.We had a long discussion today with Alecia and his mother about options formenstrual suppression and the side effects of various methods including OCPs,Mirena (Liletta) IUD, Nexplanon, Lupron. Given the side effects of Nexplanonincluding irregular bleeding and spotting as well as mood disturbances andpotential for exacerbation of his pre-existing anxiety and depression(particular anxiety around spotting), I would not recommend this method.He is considering a Liletta IUD (per insurance issues, must be covered by [facility]), and he would like this placed as soon as possible. Written handouts onNexplanon and Mirena provided.Rx for xanax 0.5mg #2 tablets and ibuprofen 600mg provided today forpremedication prior to IUD placement.They will schedule a visit for IUD placement as works with their schedule.Consult placed to Dr. Albert in the transgender care clinic for discussion abouthormonal therapy and eventual hysterectomy. If they believe patient is acandidate for testosterone, could start now.Kelley Pierce PhysicianObstetrics and GynecologyCape Fear/Harnett Health201711:11 [id number] saw and evaluated the patient. Discussed with the resident and agree withresident's findings and plan as documented in the resident's note.Maida Burgess MD 03/22/2018 11:34 AM SignedSchedule an appointment for a Hilda Randle IUD placement1) Take one xanax tablet the night prior to IUD placement and one xanax [id number] before the procedure2) Take one ibuprofen tablet 30 minutes prior to the procedure and one tabletevery 6 hours as needed after the IUD placementReferring Provider: SELF [[id number]]Allergies As of Date: 03/22/2018 Noted Allergy ReactionCATS 10/15/2010 5 - IntoleranceHAY FEVER (SEASONAL ALLERGIES) 02/17/2013 12 - Shortness of BreathDate Reviewed: 03/22/2018Reviewed by: Yanet Jay LPN - Fully AssessedReason for Visit: Nexplanon [Other]Primary Visit Diagnosis:Nexplanon insertion [Z30.017] Other Visit Diagnoses:Anxiety [F41.9] Menstrual suppression [N94.89]Order(s):HCG QUAL UR B/O [4272136] Order #: [id number] ALPRAZolam (XANAX) 0.5 mg tabletTake one tablet at bedtime the night prior to the procedure and one tablet 30min prior to the procedureDisp: 2 tabletRfl: 0 ibuprofen (MOTRIN) 600 mg tabletTake 1 tablet by mouth every 6 hours as needed for Pain. Take with food.Disp: 20 tabletRfl: 0 CONSULT TO [facility] [[id number]] Order #: [id number]: 1Prescriptions as of 03/22/2018 Sig: CHOLECALCIFEROL (VITAMIN D3) * Take 1 capsule by mouth once * PROPRANOLOL 10 MG TABLET Take 1 tablet by mouth twice * DIPHENHYDRAMINE 25 MG CAPSULE Take 1 capsule by mouth at be* ACETAMINOPHEN 325 MG TABLET Take 650 mg by mouth every 6 * ALPRAZOLAM 0.5 MG TABLET Take one tablet at bedtime th* IBUPROFEN 600 MG TABLET Take 1 tablet by mouth every * NORETHINDRONE (CONTRACEPTIVE)* Take 1 tablet by mouth once d*Medication notes this encounter NORETHINDRONE (CONTRACEPTIVE) 0.35 MG TABLET >> Yanet Jay LPN 03/22/2018 11:01 AM >> YANET JAY EPIFANIO SunMar 22, 2018 11:01 AM Not takingProblem List As Of Date 03/22/2018 Noted Resolved Moderate episode of recurrent major depressive *INVALID FOR* More... Ovarian cyst, right [N83.201] INVALID FOR* LUDIN (generalized anxiety disorder) [F41.1] INVALID FOR* More... 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 Hallucinations [R44.3] INVALID FOR* Other instructions from your clinician: Schedule an appointment for a Hilda Randle IUD placement 1) Take one xanax tablet the night prior to IUD placement and one xanax tablet 30minutes before the procedure 2) Take one ibuprofen tablet 30 minutes prior to the procedure and one tablet every 6 hours as needed after the IUD placementPrescriptions ordered this encounter Disp Refills Start End ALPRAZOLAM 0.5 MG TABLET 2 ta* 0 03/22/2018 05/23/2018 Class: Print RX Sig: Take one tablet at bedtime the night prior to the procedure and one tablet 30min prior to the procedure IBUPROFEN 600 MG TABLET 20 t* 0 03/22/2018 Route: ORAL Sig: Take 1 tablet by mouth every 6 hours as needed for Pain. Take with food. Status:Closed by LUCY KU MD on 03/22/18Chart Close Cosign Accepted by: NARGIS SILVESTRE[[id number]]Chart Close Cosign Accepted on: SunApr 12, 2018 10:12 PM Normal [facility] PROGRESSon 03-22-2018 Protein HNO ID: [id number] thor: Lucy (Res) BrayanyService: (none)Author Type: ResidentType: Progress NotesFiled: 04/12/2018 10:11 PMNote Text:Gynecology Clinic03/22/2018 11:11 AMCC: Nexplanon placement/menstrual suppressionHPI: Alecia Malcolm is a 17 year old FtM transgender male who presentsto clinic today with his mother Stacey for consult regarding menstrualsuppression. He has been using control pills for a few years butforgets to take pills sometimes and has occasional spotting which is veryupsetting to him. He ideally would have as little bleeding as possible.Alecia also struggles with anxiety and depression and is seeing a transgenderpsychiatrist for this. Is taking hydroxyzine and propranolol prn.Psychiatrist strongly recommended Nexplanon for menstrual suppression.Alecia is interested in hysterectomy as soon as possible and has manyquestions about this. He has not yet started taking testosterone but isconsidering starting in the near future.Review of Systems:GENERAL: Negative for malaise, significant weight loss and feverNECK: Negative for lumps, goiter, pain and significant neck swellingRESPIRATORY: Negative for cough, wheezing and shortness of breathCARDIOVASCULAR: Negative for chest pain, leg swelling and palpitationsGI: Negative for abdominal discomfort, blood in stools or blackstools,change in bowel habitsGU: Negative for dysuria, frequency and incontinenceMUSCULOSKELETAL : Negative for joint pain or swelling, back pain, andmuscle pain.SKIN: Negative for lesions, rash, and itching.HEMATOLOGY/LYMPHOLO GY Negative for prolonged bleeding, bruising easily,and swollen nodes.ENDOCRINE: Negative for cold or heat intolerance, polyuria, polydipsia andgoiter.FAMILY HISTORYProblem Relation Age of Onset- pre-diabetes [OTHER] Mother- migraines [OTHER] Mother- Cancer Paternal Grandfather- benign tumor [OTHER] Paternal Grandmother- migraines [OTHER] Maternal GrandmotherPAST MEDICAL HISTORYDiagnosis Date- Abdominal pain- Anxiety- Mild binge-eating disorder 07/14/2017- NEGATIVE HISTORY OF 06-19-12 Normal Color Vision- Ovarian cyst- PMH - PAST MEDICAL HISTORY OF umbilical hernia- PMH - PAST MEDICAL HISTORY OF [facility] and renal ultrasound - normal- PMH - PAST MEDICAL HISTORY OF 08/21/2008 Failed Color VisionPAST SURGICAL HISTORYProcedure Laterality Date- NONESocial History Marital status: Single Spouse name: Years of education: Number of children:Occupational HistoryOccupation Employer CommentstudentSocial History Main Topics Smoking status: Never Smoker Smokeless tobacco: Never Used Comment: Mom no longer smokes Alcohol use: No Drug use: No Sexual activity: No Comment: Never SA, identifies as gayObstetric History T0 L0 SAB0 TAB0 Ectopic0 Multiple0 Live Kdizxa1Thheraaxcda:Current Outpatient Prescriptions:cholecalcifer ol, Vitamin D3, (VITAMIN D3) 50,000 unit cap capsule Take 1capsule by mouth once each week. Disp: 6 capsule Rfl: 0propranolol (INDERAL) 10 mg tablet Take 1 tablet by mouth twice daily. Cantake an additional tablet once daily PRN anxiety/panic. Disp: 90 tabletRfl: 2diphenhydrAMINE (BENADRYL) 25 mg capsule Take 1 capsule by mouth atbedtime as needed. Use as directed. Disp: Rfl:acetaminophen (TYLENOL) 325 mg tablet Take 650 mg by mouth every 6 hoursas needed. Disp: Rfl:ALPRAZolam (XANAX) 0.5 mg tablet Take one tablet at bedtime the nightprior to the procedure and one tablet 30min prior to the procedure Disp: 2tablet Rfl: 0ibuprofen (MOTRIN) 600 mg tablet Take 1 tablet by mouth every 6 hours asneeded for Pain. Take with food. Disp: 20 tablet Rfl: 0Norethindrone, Contraceptive, (ORTHO MICRONOR) 0.35 mg tablet Take 1tablet by mouth once daily. Disp: 1 Package Rfl: 11No current facility-administered medications for this visit.Allergies:ALLERGIESAl lergen Reactions- Cats Intolerance- Hay Fever [Seasonal* Shortness of BreathPhysical Exam:PHYSICAL EXAMINATION:BP 124/79 Pulse 99 Ht 5' 6 (1.676 m) Wt 256 lb (116.1 kg) LMP03/19/2018 (Exact Date) BMI 41.32 kg/m?General: NAD, well nourished, appropriate affectAssessment and Plan: Alecia 17 year old FtM transgender young manwho presented to clinic for nexplanon placement for menstrual suppression.We had a long discussion today with Alecia and his mother about options formenstrual suppression and the side effects of various methods includingOCPs, Mirena (Liletta) IUD, Nexplanon, Lupron. Given the side effects ofNexplanon including irregular bleeding and spotting as well as mooddisturbances and potential for exacerbation of his pre-existing anxietyand depression (particular anxiety around spotting), I would not recommendthis method.He is considering a Liletta IUD (per insurance issues, must be covered by[facility]), and he would like this placed as soon as possible. Writtenhandouts on Nexplanon and Mirena provided.Rx for xanax 0.5mg #2 tablets and ibuprofen 600mg provided today forpremedication prior to IUD placement.They will schedule a visit for IUD placement as works with their schedule.Consult placed to Dr. Albert in the transgender care clinic for discussionabout hormonal therapy and eventual hysterectomy. If they believe patientis a candidate for testosterone, could start now.Kelley Pierce PhysicianObstetrics and GynecologyCritical Access Hospital 201711:11 [id number] saw and evaluated the patient. Discussed with the resident and agreewith resident's findings and plan as documented in the resident's note.Nargis Silvestre MD [facility] Encounters Encounter Date Encounter Type Care Provider Facility Start: 06-16-2024 ambulatory JONATAN MAST ENVIRONMENTAL EPIDEMIOLOGIST-SENIOR GIS ANALYST Fa cility:[facility] Start: 06-10-2024 ambulatory DANIEL REMBERTO DO Facil ity:[facility] Start: 08-10-2023 End: 08-10-2023 ambulatory JONATAN MAST ENVIRONMENTAL EPIDEMIOLOGIST-SENIOR GIS ANALYST Facility:[facility] Start: 08-10-2023 End: 08-10-2023 Patient encounter procedure [facility]ONATAN MAST ENVIRONMENTAL EPIDEMIOLOGIST-SENIOR GIS ANALYST [facility] Start: 02-09-2023 End: 05-03-2023 Physical therapy management VICKI MERCER [facility] Start: 01-05-2023 End: 01-05-2023 ambulatory VERONIKA Arroyo [facility] Start: 01-04-2023 End: 01-04-2023 [facility] Start: 12-15-2022 Telephone encounter Charanjit shook MD Work Phone: [facility] Comment on above: Release Of Medical R ecords Start: 09-16-2018 End: 09-16-2018 Patient encounter procedure SELF REFERRED [facility] Start: 09-10-2018 End: 09-10-2018 Patient encounter procedure RIHAB MOHAMED [facility] Start: 09-09-2018 End: 09-09-2018 Patient encounter procedure SELF REFERRED [facility] Start: 09-05-2018 End: 09-06-2018 Patient encounter procedure SANTI JVAIER [facility] Start: 03-22-2018 End: 03-22-2018 Ambulatory LUCY (RES) [facility] Plan of Treatment Date Care Activity Detail Author Start: 10-08-2022 DEPRESSION ASSESSMENT DEPRESSION ASS ESSMENT [facility] Start: 06-19-2022 Urine microalbumin profile DTA P,TDAP,TD (7 - Td or Tdap) [facility] Start: 06-08-2022 Influenza vaccination INFLUENZA (#1) [facility] Start: 2022 PAP TESTING PAP TESTING [facility] Start: 2019 CHLAMYDIA SCREENING (18-24) CHLAMYDIA SCREENING (18-24) [facility] Start: 2019 GC (GONORRHEA) SCREE LISA (18-24) GC (GONORRHEA) SCREENING (18-24) [facility] Start: 2019 HEPATITIS C SCREENING HEPATITIS C SC REENING [facility] Start: 2019 HIV SCREENING HIV SCREENING [facility] Start: 2015 PEDS TO ADULT TRANSI TION ANNUAL ASSESSMENT PEDS TO ADULT TRANSITION ANNUAL ASSESSMENT [facility] Start: 2013 PEDS TO ADULT TRANSI TION INITIAL DISCUSSION PEDS TO ADULT TRANSITION INITIAL DISCUSSION [facility] Start: 2011 MENINGOCOCCAL B: Con administrative support assistant based on risk (1 of 2 - Risk Bexsero 2-dose series) MENINGOCOCCAL B: Consider based on risk (1 of 2 - Risk Bexsero 2-dose series) [facility] Start: 2001 COVID-19 VACCINE (#1) COVID-19 VACCI NE (#1) [facility] Immunizations Immunization Date Immunization Notes Care Provider Fa cility 11-09-2021 SARS-CoV-2 (COVID-19 ) mRNA-1273 vaccine VICKI MERCER [facility] 03-07-2021 SARS-CoV-2 (COVID-19 ) mRNA-1273 vaccine VICKI MERCER [facility] 02-09-2021 SARS-CoV-2 (COVID-19 ) mRNA-6761 vaccine VICKI MERCER [facility] 10-23-2018 influenza, injectabl e, quadrivalent, contains preservative Charanjit Diaz MD Work Phone: [facility] 09-11-2018 Human Papillomavirus 9-valent vaccine Charanjit Diaz MD Work Phone: [facility] Work Phone: 08-20-2017 Human Papillomavirus 9-valent vaccine Charanjit Diaz MD Work Phone: [facility] 06-12-2017 Human Papillomavirus 9-valent vaccine Charanjit Diaz MD Work Phone: [facility] 06-12-2017 influenza, injectabl e, quadrivalent, contains preservative Charanjit Diaz MD Work Phone: [facility] 06-12-2017 meningococcal polysaccharide (groups A, C, Y and W-135) diphtheria toxoid conjugate vaccine (MCV4P) Charanjit Diaz MD Work Phone: [facility] 06-19-2012 Meningococcal, MCV4, unspecified conjugate formulation(groups A, C, Y and W-135) Charanjit Diaz MD Work Phone: [facility] 06-19-2012 tetanus toxoid, redu david diphtheria toxoid, and acellular pertussis vaccine, adsorbed Charanjit Diaz MD Work Phone: [facility] 06-19-2012 varicella virus vaccine Charanjit Diaz MD Work Phone: [facility] 08-21-2008 influenza virus vacc ine, live, attenuated, for intranasal use Charanjit Diaz MD Work Phone: [facility] Work Phone: 01-19-2006 diphtheria, tetanus toxoids and acellular pertussis vaccine Charanjit Diaz MD Work Phone: [facility] Work Phone: 01-19-2006 measles, mumps and rubella virus vaccine Charanjit Diaz MD Work Phone: [facility] Work Phone: 01-19-2006 poliovirus vaccine, inactivated Charanjit Diaz MD Work Phone: [facility] Work Phone: 09-18-2002 diphtheria, tetanus toxoids and acellular pertussis vaccine Charanjit Diaz MD Work Phone: [facility] Work Phone: 09-18-2002 haemophilus influenz ae type b vaccine, HbOC conjugate Charanjit Diaz MD Work Phone: [facility] Work Phone: 05-29-2002 measles, mumps and rubella virus vaccine Charanjit Diaz MD Work Phone: [facility] Work Phone: 05-29-2002 poliovirus vaccine, inactivated Charanjit Diaz MD Work Phone: [facility] Work Phone: 05-29-2002 varicella virus vaccine Charanjit Diaz MD Work Phone: [facility] Work Phone: 2001 diphtheria, tetanus toxoids and acellular pertussis vaccine Charanjit Diaz MD Work Phone: [facility] Work Phone: 2001 haemophilus influenz ae type b vaccine, HbOC conjugate Charanjit Diaz MD Work Phone: [facility] Work Phone: 2001 hepatitis B vaccine, pediatric or pediatric/adolescent dosage Charanjit Diaz MD Work Phone: [facility] Work Phone: 2001 pneumococcal conjuga te vaccine, 7 valent Charanjit Diaz MD Work Phone: [facility] Work Phone: 2001 diphtheria, tetanus toxoids and acellular pertussis vaccine Charanjit Diaz MD Work Phone: [facility] Work Phone: 2001 haemophilus influenz ae type b vaccine, HbOC conjugate Charanjit Diaz MD Work Phone: [facility] Work Phone: 2001 pneumococcal conjuga te vaccine, 7 valent Charanjit Diaz MD Work Phone: [facility] Work Phone: 2001 poliovirus vaccine, inactivated Charanjit Diaz MD Work Phone: [facility] Work Phone: 2001 diphtheria, tetanus toxoids and acellular pertussis vaccine Charanjit Diaz MD Work Phone: [facility] Work Phone: 2001 haemophilus influenz ae type b vaccine, HbOC conjugate Charanjit Diaz MD Work Phone: [facility] Work Phone: 2001 pneumococcal conjuga te vaccine, 7 valent Charanjit Diaz MD Work Phone: [facility] Work Phone: 2001 poliovirus vaccine, inactivated Charanjit Diaz MD Work Phone: [facility] Work Phone: 2001 hepatitis B vaccine, pediatric or pediatric/adolescent dosage Charanjit Diaz MD Work Phone: [facility] Work Phone: 2001 hepatitis B vaccine, pediatric or pediatric/adolescent dosage Charanjit Diaz MD Work Phone: [facility] Work Phone: Payers Date Payer Category Payer Medicaid [id number] 2023 Unknown [id number] 2001 Unknown [id number] 2.16.84 [id number] 2001 Unknown [id number] 2.16.84 [id number] 2001 Unknown [id number] 2.16.8 [id number] 2001 Unknown [id number] 2.16.8 [id number] 2001 Unknown [id number] 2.16.8 [id number] 1971 Unknown [id number] 2.16.8 [id number] 1971 Unknown [id number] 2.16.8 [id number] 1971 Unknown [id number] 2.16.8 [id number] 1971 Unknown [id number] 2.16.8 [id number] Unknown [id number] Social History Date Type Detail Facility Start: 07-14-2021 End: 12-14-2022 Tobacco smoking status NHIS Never smoked tobacco [facility] Start: 07-14-2021 Tobacco use and exposure Smokeless tobacco non-user [facility] Start: 07-14-2021 Alcohol intake 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 Weight bearing status: non weight bearing Joint Mobility: Grossly restricted with PROM L ankle Effusion: min to no effusion. Foot: L operative foot has well healed incisions without excess warmth or obvious signs of infection. Toe ROM L foot: Grossly restricted passively. [facility] Evaluation + Plan note 08-10-2023 Radiology Note Date & Type Note Facility 08-10-2023 Evaluation + Plan note Future Scheduled TestsXR Hip 3-4 Views Bilateral 08/10/23 [facility] Note 12-15-2022 Telephone Encounter - Janeth Triplett LPN - 12/15/2022 2:41 PM EST Note Date & Type Note Facility 12-15-2022 Miscellaneous Notes Formattin g of this note might be different from the original. Received release of Medical Records form from [facility] , signed by patient. Form was faxed to medical records at [phone] and then sent to scanning. documented in this encounter [facility] Evaluation + Plan note Note Date & Type Note Facility Evaluation + Plan note Future Appointments Appointment Date:05/17/2023 10:00:00 AM Scheduled Provider:MARYANNE ZELAYA Location[facility] Appointment Type: PRODUCTS MECHANICAL DESIGN ENGINEER [facility] Hospital course Narrative Note Date & Type Note Facility Hospital course Narrative No data available for this section [facility] Hospital Discharge instructions Note Date & Type Note Facility Hospital Discharge instructions No data available for this section [facility] Progress note Note Date & Type Note Facility Progress note No data available for this section [facility] Summary Purpose Family History No Family History Records FoundNo Family History Records FoundNo Family History Records FoundNo Family History Records Found No data available for this section No data available for this section No Family History Records FoundNo Family History Records Found Advance Directives No Advanced Directives Records FoundNo Advanced Directives Records FoundNo Advanced Directives Records FoundNo Advanced Directives Records FoundNo Advanced Directives Records FoundNo Advanced Directives Records Found Additional Source Comments INFORMATION SOURCE (unrecogn ized section and content) DATE CREATED AUTHOR 04/14/2018 [facility] DATE CREATED AUTHOR AUTHOR'S ORGANIZ ATION 09/18/2018 [facility] DATE CREATED AUTHOR AUTHOR'S ORGANIZ ATION 12/17/2022 [facility] DATE CREATED AUTHOR AUTHOR'S ORGANIZ ATION [facility]20[facility] DATE CREATED AUTHOR AUTHOR'S ORGANIZ ATION 06/11/2024 [facility] ([place]) DATE CREATED AUTHOR AUTHOR'S ORGANIZ ATION 07/17/2024 [facility] Source Comments (unrecognize d section and content) In the event this informatio n is protected by the Federal Confidentiality of Alcohol and Drug Abuse Patient Records regulations: The Federal rules restrict any use of the information to criminally investigate or prosecute any alcohol or drug abuse patient.[facility] Reason for Visit (unrecogniz ed section and content) Reason Comments Release Of Medical Records Care Teams (unrecognized sec tion and content) [employer] Relationship Specialty Start Date End Date Charanjit Diaz MD [address] [place] [address] PCP - General 10/14/09 FOR RECORDS PERTAINING TO PATIENTS WHO ARE OR HAVE BEEN ENROLLED IN A CHEMICAL DEPENDENCY/SUBSTANCEABUSE PROGRAM, SOME INFORMATION MAY BE OMITTED. This clinical summary was aggregated from multiple sources. Caution should be exercised in using it in the provision of clinical care. This summary normalizes information from multiple sources, and as a consequence, information in this document may materially change the coding, format and clinical context of patient data. In addition, data may be omitted in some cases. CLINICAL DECISIONS SHOULD BE BASED ON THE PRIMARY CLINICAL RECORDS. [employer] provides no warranty or guarantee of the accuracy or completeness of information in this document.
== END | disposition home or self-care (01) ==
LOC: CT 16:42
PROVIDERS: PCP Nurse Practitioner Adult Health; Referring Provider Internal Medicine Gastroenterology; Visit Provider Internal Medicine Gastroenterology
DX: K62.5 Hemorrhage of anus and rectum (principal); K92.2 Gastrointestinal hemorrhage, unspecified
CPT/HCPCS: 74177; Q9967